=== PATIENT | female | born 1960 | race Caucasian/White ===

== ENCOUNTER 2017-02-24 13:49 | Observation (INO) | payer OTHER ==
--- NOTE | 2017-02-24 14:10 | PDOC ---
History of Present Illness - General Chief Complaint: Injury Stated Complaint: FALL Time Seen by Provider: 02/24/17 13:57 History Source: Patient - History of Present Illness Initial Comments: 02/24/17 14:57 Patient presents c/o LLE and lower back pain after slipping on a wet floor at her workplace. Patient states her right foot slipped on the wet floor and she fell on her right side hyperextending her LLE. Patient denies any head trauma or LOC. Immediately after the fall patient states she experienced numbness in her LLE that resolved within 5 minutes following elevation of her LLE. Patient did not ambulate following the fall and was transported to our ED via EMS. NKDA Surgical: R carpal tunnel repair, tubal ligation Social: denies nicotine, 1-2 alcoholic drinks weekly, denies recreational drugs PMD: Dr. Zachary Moon Orthopedic Surgeon: Dr. Sandoval Jessica Past History - Past Medical History Allergies/Adverse Reactions: Allergies Allergy/AdvReac Type Severity Reaction Status Date / Time No Known Allergies Allergy Verified 02/24/17 15:00 Home Medications: Ambulatory Orders Fluticasone/Salmeterol [Advair 250-50 Diskus] 1 each IH BID 02/24/17 Review of Systems - Review of Systems Constitutional: No: Chills, Fever Respiratory: No: Shortness of Breath Cardiac (ROS): No: Chest Pain Neurological: Yes: Numbness. No: Headache All Other Systems: Reviewed and Negative *Physical Exam - Physical Exam General Appearance: Yes: Nourished, Appropriately Dressed HEENT: positive: EOMI, JAN Respiratory/Chest: positive: Lungs Clear Cardiovascular: positive: S1, S2 Vascular Pulses: Dorsalis-Pedis (R): 3+, Doralis-Pedis (L): 3+ Gastrointestinal/Abdominal: positive: Normal Bowel Sounds, Soft Musculoskeletal: positive: Vertebral Tenderness (lumbar/sacral TTP) Extremity: positive: Normal Capillary Refill, Other (LLE: (-) anterior and posterior drawer test, neurovascularly intact, no tibial/fibular head TTP) Integumentary: positive: Normal Color, Dry, Warm 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 female who presents following a fall with a c/o pain in LLE. On PE patient is neurovascularly intact, full ROM, however has significant pain. PLAN: 1. Lumbar/Sacral XR 2. L pelvis, hip XR 02/24/17 16:11 Lumbar spine negative for acute compression fraction, lumbar spondylosis- likely chronic; L Hip/Pelvis negative for acute hip fracture or dislocation. 02/24/17 16:24 Patient ambulates with crutches, however experiences significant pain. 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 Hawthorne paged for observation admission. Requests CT - CT L femur pending 02/24/17 19:01 CT L femur negative for acute fracture/dislocation; patient admitted to Dr. Hawthorne for observation with consult to Dr. Dee (orthopedic surgery). *DC/Admit/Observation/Transfer Diagnosis at time of Disposition: Ambulatory dysfunction - Discharge Dispostion Condition at time of disposition: Fair Admit: Yes
[2017-02-24] MEDS ORDERED: KETOROLAC TROMETHAMINE 60 MG/2 ML VIAL IM ONE (14:55)
[2017-02-24] MEDS ORDERED: traMADol HCL 50 MG TABLET PO ONE (14:55)
--- NOTE | 2017-02-24 15:01 | PDOC ---
Attending Attestation - Resident Resident Name: Moreno Jovelica - ED Attending Attestation I have performed the following: I have examined & evaluated the patient, The case was reviewed & discussed with the resident, I agree w/resident's findings & plan, Exceptions are as noted - HPI HPI: 02/24/17 14:57 56-year-old female presents with left lower extremity and low back pain after slip and fall at work. Patient slipped on wet floor, hyperflexed her left lower extremity and fell to the ground, landing on her right side. No head injury or LOC, had immediate sensation of numbness to her left leg but that quickly resolved over the course of about a minute, now presents with persistent discomfort to her left low back and left lateral upper leg. Some tingling but no motor or sensory deficit, no bowel or bladder issues. - Physicial Exam PE: 02/24/17 14:58 Vital signs normal. Seated in stretcher, comfortable and conversant Exam is atraumatic including no midline spine tenderness There is subtle discomfort to the left gluteal/pelvic region without palpable deformity or pinpoint tenderness, there is full range of motion of both hips/ knees/ankle/toes with 5 out of 5 strength on flexion and extension. There is no focal bony abnormality, the patellar tendon is intact. There is no bruising or swelling, neurovascular intact distally. Knee joint is stable on valgus/varus/ anterior/posterior strain. - Medical Decision Making 02/24/17 14:59 Patient seen and evaluated with the resident. I agree with the overall evaluation, assessment, and management with the following summary of visit: 56-year-old female with left leg strain in the setting of slip injury on water. Likely all soft tissue related, question whether there is some complement of radiculopathy in the lumbar region, but she is neurologically intact. Rule out fractures, continue to monitor. No head injury and neurologically intact. LS-spine film, left hip and pelvis x-rays Pain control line reassess. Trial of ambulation after confirming no fracture, if comfortable and neurologically intact can follow-up with orthopedics for MRI imaging as needed.
[2017-02-24 18:19] LABS: BASOPHIL 0.3 % (0-2.0); EOSINOPHIL 0.4 % (0-4.5); MCH 30.5 pg (25.7-33.7); MCHC 33.7 g/dl (32.0-36.0); MEAN CELL VOLUME 90.3 fl (80-96); MEAN PLT VOLUME 8.5 fl (7.5-11.1); NEUTROPHILS 81.8 % (42.8-82.8); PLATELET COUNT 267 K/MM3 (134-434); RDW 12.6 % (11.6-15.6); WHITE BLOOD COUNT 8.3 K/mm3 (4.0-10.0)
[2017-02-24 19:01] LABS: ALBUMIN 3.9 g/dl (3.4-5.0); ALK PHOS 65 U/L (45-117); ANION GAP 7 (8-16); BILIRUBIN,TOTAL 0.2 mg/dL (0.2-1.0); CALCIUM 8.6 mg/dL (8.5-10.1); CO2 26 mmol/L (21-32); CREATININE 0.7 mg/dL (0.55-1.02); GLUCOSE,RANDOM 91 mg/dL (74-106); SGOT/AST 18 U/L (15-37); SGPT/ALT 33 U/L (12-78); TOT PROT 6.8 g/dl (6.4-8.2)
[2017-02-24] MEDS ORDERED: ACETAMINOPHEN 325 MG TABLET (FP) PO PRN (19:09)
[2017-02-24] MEDS ORDERED: HEPARIN NA (PORCINE) 5,000 UNITS/ML 1ML VIAL ONE (22:09)
[2017-02-24] MEDS: HEPARIN NA (PORCINE) 5,000 UNITS/ML 1ML VIAL SQ SCH (22:23)
[2017-02-25] MEDS ORDERED: ACETAMINOPHEN 325 MG TABLET (FP) ONE (00:45)
[2017-02-25] MEDS: ALBUTEROL SO4 0.083% IH SOL 2.5 MG/3 ML VIAL.NEB. NEB SCH ×3 (00:52→19:04)
[2017-02-25 04:54] VITALS: BMI 33.3
[2017-02-25 07:56] LABS: BASOPHIL 0.2 % (0-2.0); MCH 30.3 pg (25.7-33.7); MCHC 33.8 g/dl (32.0-36.0); MEAN CELL VOLUME 89.6 fl (80-96); MEAN PLT VOLUME 8.6 fl (7.5-11.1); PLATELET COUNT 246 K/MM3 (134-434); RDW 12.4 % (11.6-15.6); WHITE BLOOD COUNT 6.3 K/mm3 (4.0-10.0)
--- NOTE | 2017-02-25 08:13 | HP ---
Admitting History and Physical - Admission History of Present Illness: 56-year-old female presents with left lower extremity and low back pain after slip and fall at work. Patient slipped on wet floor, hyperflexed her left lower extremity and fell to the ground, landing on her right side. No head injury or LOC, had immediate sensation of numbness to her left leg but that quickly resolved over the course of about a minute, now presents with persistent discomfort to her left low back and left lateral upper leg. Some tingling but no motor or sensory deficit, no bowel or bladder issues. 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 Cardiovascular: No: HTN, Hyperlipdemia Pulmonary: Yes: Asthma Gastrointestinal: No: Ascites, Constipation - Smoking History Smoking history: Never smoked - Alcohol/Substance Use Hx Alcohol Use: No Home Medications - Allergies Allergies/Adverse Reactions: Allergies Allergy/AdvReac Type Severity Reaction Status Date / Time No Known Allergies Allergy Verified 02/24/17 15:00 - Home Medications Home Medications: Ambulatory Orders Fluticasone/Salmeterol [Advair 250-50 Diskus] 1 each IH BID 02/24/17 Review of Systems - Review of Systems Cardiovascular: reports: No Symptoms Gastrointestinal: reports: No Symptoms Genitourinary: reports: No Symptoms Musculoskeletal: reports: Extremity Pain, Muscle Pain Integumentary: reports: No Symptoms Neurological: reports: No Symptoms Physical Examination Vital Signs: Vital Signs Temperature 97.7 F 02/25/17 04:29 Pulse Rate 74 02/25/17 04:29 Respiratory Rate 18 02/25/17 04:29 Blood Pressure 121/72 02/25/17 04:29 O2 Sat by Pulse Oximetry (%) 100 02/25/17 02:39 Cardiovascular: Yes: Regular Rate and Rhythm Respiratory: Yes: Regular, CTA Bilaterally Gastrointestinal: Yes: Normal Bowel Sounds, Soft Extremities: No: Calf Tenderness, Erythema, External Rotation, Internal Rotation Labs: CBC, BMP 02/25/17 07:00 Imaging - Results X-ray: Report Reviewed Cat Scan: Report Reviewed Problem List - Problems (1) Hip pain Assessment/Plan: ORTHO CONSULT PT Code(s): M25.559 - PAIN IN UNSPECIFIED HIP (2) Fall Assessment/Plan: ABOVE Code(s): W19.XXXA - UNSPECIFIED FALL, INITIAL ENCOUNTER (3) Asthma Assessment/Plan: STABLE ALBUTEROL Code(s): J45.909 - UNSPECIFIED ASTHMA, UNCOMPLICATED
--- NOTE | 2017-02-25 09:48 | CONSULT ---
Consult - text type - Consultation Consultation Note: FULL CONSULT DICTATED IMP: LEFT HIP PAIN NO FX PLAN: NSAIDS, ANALGESICS, PT, DC TO HOME
[2017-02-25] MEDS: HEPARIN NA (PORCINE) 5,000 UNITS/ML 1ML VIAL SQ SCH ×2 (11:02→21:57)
[2017-02-25] MEDS: traMADol HCL 50 MG TABLET PO PRN ×2 (11:03→22:27)
--- NOTE | 2017-02-25 11:03 | CONS ---
DATE OF CONSULTATION: 02/25/2017 ORTHOPEDIC CONSULTATION HISTORY OF PRESENT ILLNESS: The patient is a 56-year-old female status post a fall yesterday, flipping up and landing on the hard stone floor. She is complaining of pain in her back and in her left lower extremity. Yesterday she was unable to walk. Today she is feeling somewhat better. Orthopedic consultation was ordered to evaluate this patient. No significant past medical history. PHYSICAL EXAMINATION: The patient has equal limb lengths. Positive straight leg raise. Passive and active full range of motion bilateral hips, knees, ankles and toes, with some pain in the left thigh region medially with range of motion. No effusion. No ecchymosis or erythema. Sensation appears to be intact, as did reflexes and strength. She has some pain with forward flexion and extension of her spine. Mild paraspinal tenderness in the lower lumbar region. No straightened lumbar lordosis. No scoliosis, july of hair, hyperpigmentation or cafe au lait spots. DIAGNOSTIC STUDIES: X-rays of the hip and CAT scan of the hip are negative for fracture. X-rays of the lumbosacral spine are positive for L4-L5 grade 1 spondylolisthesis and possible L5 spondylosis, otherwise no acute fracture, dislocation or lesions. IMPRESSION: Status post fall, complaining of lower back and left lower extremity/thigh pain, but no acute fracture or dislocation. PLAN: Rest. Nonsteroidals, analgesics. Weight-bearing as tolerated. Physical therapy. Discharge home and follow up in my office in 10 days' time. BRYANNA ESPINO M.D. [id number]
[2017-02-26] MEDS: ALBUTEROL SO4 0.083% IH SOL 2.5 MG/3 ML VIAL.NEB. NEB SCH ×4 (07:00→17:56)
--- NOTE | 2017-02-26 09:00 | PN ---
Progress Note (short form) - Note Progress Note: Pt seen and examined. She is feeling much better, left hip and LE pain much improved. She can ambulate, with less pain, FWB. PE LLE looks better, she has good, active hip flexion, can straight leg raise against gravity. Good ROM with no pain at the left knee, ankle, foot Overall much better. She can WBAT, no restrictions. She can be DC'd from an ortho pov.
[2017-02-26 09:19] VITALS: BP 113/71; PULSE 90
[2017-02-26] MEDS: HEPARIN NA (PORCINE) 5,000 UNITS/ML 1ML VIAL SQ SCH (09:39)
--- NOTE | 2017-02-26 10:43 | DS ---
Physical Examination Vital Signs: Vital Signs Temperature 98.1 F 02/26/17 09:00 Pulse Rate 90 02/26/17 09:00 Respiratory Rate 18 02/26/17 09:00 Blood Pressure 113/71 02/26/17 09:00 O2 Sat by Pulse Oximetry (%) 100 02/25/17 02:39 Constitutional: Yes: Calm, Thin Cardiovascular: Yes: Regular Rate and Rhythm, S1, S2 Respiratory: Yes: CTA Bilaterally Gastrointestinal: Yes: Normal Bowel Sounds, Soft Edema: No Neurological: Yes: Alert, Oriented Labs: CBC, BMP 02/25/17 07:00 Discharge Summary Reason For Visit: AMBULATORY DYSFUNCTION Current Active Problems Ambulatory dysfunction (Acute) Asthma (Acute) Fall (Acute) Hip pain (Acute) Hospital Course: - Admission History of Present Illness: 56-year-old female presents with left lower extremity and low back pain after slip and fall at work. Patient slipped on wet floor, hyperflexed her left lower extremity and fell to the ground, landing on her right side. No head injury or LOC, had immediate sensation of numbness to her left leg but that quickly resolved over the course of about a minute, now presents with persistent discomfort to her left low back and left lateral upper leg. Some tingling but no motor or sensory deficit, no bowel or bladder issues. 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 Cardiovascular: No: HTN, Hyperlipdemia Pulmonary: Yes: Asthma Gastrointestinal: No: Ascites, Constipation - Smoking History Smoking history: Never smoked - Alcohol/Substance Use Hx Alcohol Use: No in hospital seen by: ortho analgesic, PT, WBAT fu with ortho in one week ct scan lower extremity done no fracture PT saw patient to FU with neurolgy as outpatient Condition: Fair - Instructions Diet, Activity, Other Instructions: stool softners pain control WBAT Referrals: Anoop Dee MD [Staff Physician] - 1 Week Gael Paulino MD [Staff Physician] - 1 Week Disposition: HOME - Home Medications Comprehensive Discharge Medication List: Ambulatory Orders Fluticasone/Salmeterol [Advair 250-50 Diskus] 1 each IH BID 02/24/17
[2017-02-26 15:13] VITALS: TEMP 97.7
--- NOTE | 2017-02-26 18:46 | CONSULT ---
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 Episodic headaches since her youth. Now about 2-3/week. Occur without warning as pressure over the eyes and develop into throbbing left hemicranial or holocranial headaches with kinesiophobia. Her 16 yo daughter has headaches. On Thursday she slipped and fell on a wet floor at school. Her legs flew out and and she fell on her back, hyperextending her Left leg. Coworkers "told her" she hit her head but patient was not aware of this. She denies LOC. Soon she felt "numbness" over the left posterior thigh lasting 5 mins. In ER X Rays - Neg. Cleared by Ortho. No c/o headache. CT not done. Yesterday, she developed aching pain in her neck and today she has a dull headache with mild nausea. Still feels pain and stiffness in her left posterior thigh increased by ambulating and weight baring. ULISES: Normal neck ROM. No evidence of external head injury. Neg SLR to 90 degrees. NEURO: MS/Speech: normal CN II-XII: normal without Nystagmus Motor: No drift or tremor. Formal muscle testing revealed normal strength, bulk and tone. + Tenderness over the hamstrings to left knee flexion against resistance. Normal reflexes. Coord: Normal Sensory: Normal. Romberg neg Gait: Antalgic to the left leg. IMP: Cervical sprain. Possible head trauma/concussion Migraine headaches Possible Left Hamstrings tear. Suggest: Rest and hydration CT or MRI of brain next week if symptoms persist Neuro f/u next week as out patient. Thank you very much, Anoop Gleason MD
== END 2017-02-26 19:27 | disposition home or self-care (01) ==
LOC: JER 13:49 → JERBED 19:00 → INTOOBSV 20:23 → JERBED 20:23 → UNDOADMOB 20:23 → JERBED 02-25 03:58 → J6S 02-25 03:58
PROVIDERS: ADMIT Family Medicine; ATTEND Family Medicine
PROC: 3E0233Z Introduction of Anti-inflammatory into Muscle, Percutaneous Approach (ICD-10-PCS; principal; 2017-02-24)
PROC: 3E013GC Introduction of Other Therapeutic Substance into Subcutaneous Tissue, Percutaneous Approach (ICD-10-PCS; 2017-02-24)
DX: R26.89 Other abnormalities of gait and mobility (principal); M25.552 Pain in left hip; J45.909 Unspecified asthma, uncomplicated; W01.0XXA Fall on same level from slipping, tripping and stumbling without subsequent striking against object, initial encounter; Y93.01 Activity, walking, marching and hiking; Y92.89 Other specified places as the place of occurrence of the external cause; Y99.0 Civilian activity done for income or pay
CPT/HCPCS: 36415; 72100-TC; 73523-TC; 73700-TC-RT; 80053; 85025; 94640; 97116-GP; 97161-GP; 99285-25; G0378; J1644